=== PATIENT | male | born 1995 | race African-American/Black ===

== ENCOUNTER 2018-06-20 13:28 | Emergency (ER) | payer OTHER ==
[~2018-06-20] VITALS: Ht 170.2 cm; Wt 71.3 kg
[2018-06-20 13:41] VITALS: BP 144/86
== END 2018-06-20 15:07 | disposition home or self-care (01) ==
LOC: ED 15:06
DX: S16.1XXA Strain of muscle, fascia and tendon at neck level, initial encounter (principal); V53.6XXA Passenger in pick-up truck or van injured in collision with car, pick-up truck or van in traffic accident, initial encounter; Y93.89 Activity, other specified; Y92.89 Other specified places as the place of occurrence of the external cause; Y99.8 Other external cause status
CPT/HCPCS: 72050; 99283